=== PATIENT | female | born 1970 | race Caucasian/White ===

== ENCOUNTER 2017-09-23 08:56 | Inpatient (IN) | payer OTHER ==
[~2017-09-23] VITALS: Ht 149.9 cm; Wt 88.0 kg
[~2017-09-23 08:56] MED LIST: ? B/P MED; AMITRIPTYLINE H10 M3 PO; FLEXERIL PO; GABAPENTIN100 MG PO; LEVOTHROID; LIDODERM 5%1 PATC1 TRANSDERM; NORCO 5-325 TA1 EACH PO; PREDNISONE 20 M20 M1 PO; SYNTHROID125 MC1 PO
[2017-09-23 09:04] VITALS: BP 200/116
[2017-09-23 09:18] LABS: ABSOLUTE BASOPHILS 0.1 thou/uL (0.0-0.2); ABSOLUTE EOSINOPHILS 0.3 thou/uL (0.0-0.7); ABSOLUTE LYMPHOCYTES 3.1 thou/uL (0.8-5.3); ABSOLUTE MONOCYTES 0.5 thou/uL (0.0-1.2); ABSOLUTE NEUTROPHILS 2.7 thou/uL (1.6-8.1); BASOPHILS 1.2 %; EOSINOPHILS 4.2 %; HEMOGLOBIN 15.2 gm/dL (12.0-15.0); LYMPHOCYTES 46.5 %; MCH 30.5 pg (26.0-34.0); MCHC 34.5 g/dL (28.0-37.0); MCV 88.3 fL (80.0-100.0); MONOCYTES 7.5 %; MPV 7.7 fl. (7.2-11.1); NUCLEATED RBCS 0 /100WBC; PLATELET COUNT* 239 thou/uL (150-400); POLYS 40.6 %; RBC 4.99 mil/uL (4.20-5.00); RDW-CV 13.6 % (10.5-14.5); WBC 6.7 thou/uL (4.0-11.0)
[2017-09-23 09:26] LABS: ANION GAP 6 mmol/L (7-16); BUN 12 mg/dL (7-18); CALCIUM 8.8 mg/dL (8.5-10.1); CHLORIDE 104 mmol/L (98-107); CO2 31 mmol/L (21-32); CREATININE 0.9 mg/dL (0.6-1.3); GLUCOSE 86 mg/dL (70-99); POTASSIUM 3.5 mmol/L (3.5-5.1); SODIUM 141 mmol/L (136-145)
[2017-09-23 09:33] LABS: ALBUMIN 3.9 g/dL (3.4-5.0); ALKALINE PHOSPHATASE 108 U/L (46-116); LIPASE 247 U/L (73-393); SGOT 17 U/L (15-37); SGPT 24 U/L (30-65); TOTAL BILIRUBIN 0.5 mg/dL (<0.1-1.0); TOTAL PROTEIN 7.3 g/dL (6.4-8.2); TROPONIN-I LEVEL <0.06 ng/mL (<0.06)
[2017-09-23 10:53] VITALS: BP 141/99
[2017-09-23 11:15] VITALS: BP 209/89
[2017-09-23] MEDS ORDERED: HYDROCODONE-AP1 EAC6 PO (12:23)
--- NOTE | 2017-09-23 12:39 | NUR ---
RECEIVED PT FROM ER 1115. PT IS ALERT AND ORIENTED X4. AMBULATORY FROM CART TO BED. C/O LEFT ARM PAIN. RATES 7-8 OUT OF 10. PRN PAIN MEDICATION GIVEN WITH PARTIAL RELIEF. PRN NAUSEA MEDICATION GIVEN WITH PARTIAL RELIEF. ADMISSION ASSESSMENT AND HISTORY COMPLETED. PLAN FOR 2 DAY STRESS TEST. RESTING PART TODAY AND STRESS PART TOMORROW. PATIENT UPDATED ON PLAN OF CARE. PLAN FOR NPO AFTER MIDNIGHT. CALL LIGHT WITHIN REACH. WILL CONTINUE TO MONITOR.
--- NOTE | 2017-09-23 15:16 | EKG ---
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 : 1970 Requested By: Miguel Pringle Order Number: [id number] MD: Neftali Shaikh Measurements Intervals [place] Rate: 81 P: 64 RI: 143 QRS: 60 QRSD: 85 T: 51 QT: 387 QTc: 450 Interpretive Statements Sinus rhythm Baseline wander in lead(s) V5,V6 No previous ECG available for comparison Electronically Signed On 09-23-2017 15:16:15 GEOTHERMAL TECHNICIAN by Neftali Shaikh [email or web address] <ELECTRONICALLY SIGNED> By: Neftali Shaikh MD, [facility] 09/23/17 1516 0901 0901 Neftali Shaikh MD, [facility] /EPI
[2017-09-23 17:00] VITALS: BP 151/106
--- NOTE | 2017-09-23 17:38 | 2DMMODE ---
[place] [address] 2 D/M-MODE ECHOCARDIOGRAM Name: MOLLY SOARES Room: [address] IN [facility]#: [id number] Admission: 09/23/17 Attend Phys: Dilcia Dobbs Discharge: Date of : 72 Date of Service: 09/23/17 1738 Report #: [id number] THIS REPORT FOR: //name// APPROVED REPORT Study performed: 09/23/2017 14:29:49 EXAM: Comprehensive 2D, Doppler, and color-flow Echocardiogram Patient Location: In-Patient Room #: 230 Status: routine BSA: 1.82 HR: 68 bpm BP: 209/89 mmHg Rhythm: NSR Other Information Study Quality: Good Indications Chest Pain 2D Dimensions LVEF(%): 59.85 (>50%) IVSd: 12.31 (7-11mm) LVOT Diam: 18.55 (18-24mm) LVDd: 34.79 mm PWd: 11.02 (7-11mm) Ascending Ao: 32.54 (22-36mm) LVDs: 23.98 (25-40mm) Aortic Root: 29.41 mm Fatima's LVEF: 59.85 % Volumes Left Atrial Volume (Systole) LA ESV Index: 18.60 mL/m2 Aortic Valve AoV Peak Segundo.: 1.61 m/s AO Peak Gr.: 10.33 mmHg LVOT Max P.89 mmHg AO Mean Gr.: 4.92 mmHg LVOT Mean P.10 mmHg LVOT Max V: 1.31 m/s AO V2 VTI: 30.69 cm LVOT Mean V: 0.80 m/s JENY (VTI): 2.01 cm2 LVOT V1 VTI: 22.80 cm Mitral Valve E/A Ratio: 1.13 [place] [address] 2 D/M-MODE ECHOCARDIOGRAM Name: MOLLY SOARES Room: [address] IN [facility].#: [id number] Admission: 09/23/17 Attend Phys: Dilcia Dobbs Discharge: Date of : 72 Date of Service: 09/23/17 1738 Report #: [id number] MV Decel. Time: 236.89 ms MV E Max Segundo.: 1.07 m/s MV PHT: 68.70 ms MVA (PHT): 3.20 cm2 TDI E/Lateral E': 10.70 E/Medial E': 9.73 Medial E' Segundo.: 0.11 m/s Lateral E' Segundo.: 0.10 m/s Pulmonary Valve PV Peak Segundo.: 1.08 m/s PV Peak Gr.: 4.68 mmHg Tricuspid Valve TR Peak Gr.: 23.19 mmHg RVSP: 28.00 mmHg Left Ventricle The left ventricle is normal size. There is normal LV segmental wall motion. There is normal left ventricular wall thickness. Left ventricular systolic function is normal. LVEF is 60-65%. The left ventricular diastolic function is normal. Right Ventricle The right ventricle is normal size. The right ventricular systolic function is normal. Atria The left atrium size is normal. The right atrium size is normal. Aortic Valve The aortic valve is normal in structure. No aortic regurgitation is present. There is no aortic valvular stenosis. Mitral Valve The mitral valve is normal in structure. There is no mitral valve regurgitation noted. No evidence of mitral valve stenosis. Tricuspid Valve The tricuspid valve is normal in structure. Mild tricuspid regurgitation. The RVSP is ___28____ mmHg. Pulmonic Valve The pulmonary valve is normal in structure. There is no pulmonic [place] [address] 2 D/M-MODE ECHOCARDIOGRAM Name: MOLLY SOARES Room: [address] IN M.R.#: [id number] Admission: 09/23/17 Attend Phys: Dilcia Dobbs Discharge: Date of : 72 Date of Service: 09/23/17 1738 Report #: [id number] Great Vessels The aortic root is normal in size. IVC is normal in size and collapses with >50% inspiration Pericardium There is no pericardial effusion. <Conclusion> The left ventricle is normal size. There is normal left ventricular wall thickness. Left ventricular systolic function is normal. LVEF is 60-65%. The left ventricular diastolic function is normal. Mild tricuspid regurgitation. The RVSP is ___28____ mmHg. <ELECTRONICALLY SIGNED> By: Kp Quinonez MD, FACC 09/23/17 1738 1738 1738 Kp Quinonez MD, FACC /INF
[2017-09-23 19:40] VITALS: BP 111/63
[2017-09-24] VITALS: BP 107/68
[2017-09-24 04:20] VITALS: BP 91/66
--- NOTE | 2017-09-24 05:34 | NUR ---
ASSUMED CARE AT 1940, ASSESSMENT CHARTED. PATIENT ALERT/ORIENTED X4, SITTING UP IN BED WATCHING TV. UP AD SANDRA IN ROOM. DENIES NEEDS. STATES HAVING PAIN TO LEFT ARM, PAIN MEDS PER MAR WITH PARTIAL RELIEF NOTED. HS SNACK GIVEN. NPO AFTER MIDNIGHT. REFUSING SCD'S. CALL LIGHT WITHIN REACH, ENCOURAGED TO CALL FOR NEEDS.
--- NOTE | 2017-09-24 07:18 | NUR ---
PATIENT RESTING IN BED. REPORT GIVEN TO ONCOMING NURSE. WILL MONITOR.
--- NOTE | 2017-09-24 10:50 | NUR ---
RECIEVED REPORT FROM JAMES AND ASSUMED CARE OF PT @ 2742. PT A/O X4, BP SLIGHTLY LOW @ 108/62, TRACING SR ON MONITOR, LUNG SOUNDS CLEAR ON RA O2 SAT 99%. IV RIGHT AC SALINE LOCKED. PT IS CALM AND COOPERATIVE. PT DENIES PAIN AT TIME OF ASSESSMENT. PT IS UP AD SANDRA AND IS NPO FOR SECOND PORTION OF STRESS TEST FOR THIS MORNING. PT AMLODIPINE WAS HELD DUE TO BP BEING SOFT. PT MAY POSSIBLY DISCHARGE TODAY IF STRESS TEST IS NEGATIVE. WILL CONTINUE TO MONITOR.
[2017-09-24 13:15] VITALS: BP 134/68
--- NOTE | 2017-09-24 14:05 | NUR ---
PT GETTING STRESS TEST, POSSIBLE DC LATER
[2017-09-24] MEDS ORDERED: VOLTAREN GEL 1100 G2 TOP (14:38)
[2017-09-24] MEDS ORDERED: ALPRAZOLAM0.5 M2 PO (14:38)
[2017-09-24 15:15] VITALS: BP 134/68
[2017-09-24] MEDS ORDERED: NORVASC5 M1 PO (15:15)
--- NOTE | 2017-09-24 15:17 | CARDNUC ---
[place] [address] CARDIAC NUCLEAR IMAGING REPORT Name: MOLLY SOARES Room: [address] IN [facility].#: [id number] Admission: 09/23/17 Attend Phys: Dilcia Dobbs Discharge: Date of : 72 Date of Service: 09/24/17 1517 Report #: [id number] THIS REPORT FOR: //name// APPROVED REPORT Exam: Nuclear Stress Test Indication: Chest pain, left arm pain Patient Location: In-Patient Stress Tech: Sehryl Zelaya Stress Nurse: Opal Valderrama RN NM Tech:MOY Wadsworth Ht: 4 ft 11 in Wt: 194 lbs BSA: 1.82 m2 BMI: 39.17 Medical History Medical History: HTN Medications: amlodipine, labetalol, lisinopril, asa Allergies: No known drug allergies Cardiac Risk Factors: HTN, FHX of CAD Exercise History: Sedentary Meds Held (24 hrs): amlodipine, labetalol Stress Test Details Stress Test: Pharmacologic stress testing performed using 0.4 mg of regadenoson per 5 mL given IV over 10 seconds. Reason for pharmacologic stress test: physical limitation. HR Resting HR: 75 bpm Max Heart Rate (APMHR): 174 bpm Max HR Achieved: 103 bpm Target HR (85% APMHR): 147 bpm % of APMHR: 59 Recovery HR: 86 bpm BP Resting BP: 128/89 mmHg Max BP: 133/88 mmHg ECG Resting ECG: Sinus Rhythm, normal EKG Stress ECG: Sinus Rhythm, normal EKG ST Change: None Arrhythmia: None Recovery ECG: Sinus Rhythm, normal EKG Recovery ST Change: [place] [address] CARDIAC NUCLEAR IMAGING REPORT Name: MOLLY SOARES Room: [address]#: [id number] Admission: 09/23/17 Attend Phys: Dilcia Dobbs Discharge: Date of : 72 Date of Service: 09/24/17 1517 Report #: [id number] Recovery Arrhythmia: None Clinical Reason for Termination: Completed protocol Stress Symptoms: left arm pain-numbness Exercise duration: - min sec Exercise capacity: 1.0 METs The patient had some atypical symptoms with Lexiscan infusion but no significant chest discomfort. Nurse Comments Patient complained of Left upper arm numbness and discomfort after lexiscan injection, rated 5-6, resolving in recovery. Stress ECG Conclusion The baseline 12-lead electrocardiogram showed normal sinus rhythm with no significant ST or T wave abnormality. EKGs obtained during and post Lexiscan stress show sinus rhythm with no significant ST or T wave changes when compared to baseline. There were no stress-induced arrhythmias. NM EXAM: Myocardial Perfusion REST/STRESS Imaging Protocol: Rest Tc-99m/Stress Tc-99m 2 days Resting Data Rest SPECT myocardial perfusion imaging was performed in supine position 30 minutes following the intravenous injection of 35.2 mCi of Tc-99m Sestamibi. Time of rest injection: 1445 Date: 09/23/2017 Time of rest imagin The images were gated to evaluate regional wall motion and calculate left ventricular ejection fraction. Administration Route: IV Pharmacologic Stress Pharmacologic stress test was performed by injecting Regadenoson 0.4 mg IV push followed by the intravenous injection of 36.8 mCi of Tc-99m Sestamibi. Time of stress injection: 1200 Date: 09/24/2017 Time of stress imagin Administration Route: IV Gated Stress SPECT was performed 40 minutes after stress injection. The images were gated to evaluate regional wall motion and calculate left ventricular ejection fraction. Pr[place] [address] CARDIAC NUCLEAR IMAGING REPORT Name: MOLLY SOARES Room: [address]#: [id number] Admission: 09/23/17 Attend Phys: Dilcia Dobbs Discharge: Date of : 72 Date of Service: 09/24/17 1517 Report #: [id number] Study Quality Study: Good Artifact: No artifact Study Data At rest, the left ventricular ejection fraction was 71%.. Post stress, the left ventricular ejection was 70%.. TID = 1.05. Perfusion Normal left ventricular perfusion. Wall Motion Normal left ventricular wall motion. Nuclear Conclusion ECG Findings: negative for ischemia Clinical Findings: negative for ischemia Nuclear Findings: negative for ischemia Exercise Capacity: not assessed Left Ventricular Function: normal Risk Study: low Myocardial perfusion images show no defect to suggest infarct or ischemia. Left ventricular systolic function is normal on gated studies. This is a low risk study. <Conclusion> The baseline 12-lead electrocardiogram showed normal sinus rhythm with no significant ST or T wave abnormality. EKGs obtained during and post Lexiscan stress show sinus rhythm with no significant ST or T wave changes when compared to baseline. There were no stress-induced arrhythmias. <ELECTRONICALLY SIGNED> By: Kp Quinonez MD, FACC 09/24/17 1517 1517 1517 Kp Quinonez MD, FACC /INF
--- NOTE | 2017-09-24 16:24 | NUR ---
PT IV REMOVED @ 1540 AND HEART MONITOR. DISCHARGE PAPERWORK AND SCRIPTS GONE OVER WITH PT AND GIVEN. SCRIPT CALLED INTO [employer] TO BIPIN.PT WALKED OUT WITH ALL PERSONAL BELONGINGS @ 1630.
== END 2017-09-24 18:07 | disposition home or self-care (01) | DRG 206 ==
LOC: M.ERS 08:56 → M.2W 09:52 → M.TBA-ER 09:52 → M.2W 11:08
PROVIDERS: Emergency Medicine Emergency Medical Services; ADMIT Internal Medicine
DX: M94.0 Chondrocostal junction syndrome [Tietze] (principal); I16.1 Hypertensive emergency; E03.9 Hypothyroidism, unspecified; I16.0 Hypertensive urgency; F41.9 Anxiety disorder, unspecified; Z90.49 Acquired absence of other specified parts of digestive tract; Z82.49 Family history of ischemic heart disease and other diseases of the circulatory system

== ENCOUNTER 2020-10-11 21:58 | Emergency (ER) | payer OTHER ==
[~2020-10-11] VITALS: Ht 149.9 cm; Wt 87.1 kg
[~2020-10-11 21:58] MED LIST changes: +ALPRAZOLAM0.5 M2 PO; +HYDROCODONE-AP1 EAC6 PO; +NORVASC5 M1 PO; +VOLTAREN GEL 1100 G2 TOP
[2020-10-11 22:44] LABS: ABSOLUTE BASOPHILS 0.1 thou/uL (0.0-0.2); ABSOLUTE EOSINOPHILS 0.4 thou/uL (0.0-0.7); ABSOLUTE LYMPHOCYTES 2.4 thou/uL (0.8-5.3); ABSOLUTE MONOCYTES 0.6 thou/uL (0.0-1.2); ABSOLUTE NEUTROPHILS 6.6 thou/uL (1.6-8.1); BASOPHILS 0.8 %; EOSINOPHILS 3.9 %; HEMATOCRIT 41.3 % (37.0-47.0); HEMOGLOBIN 13.6 gm/dL (12.0-15.0); LYMPHOCYTES 23.9 %; MCH 27.7 pg (26.0-34.0); MCV 83.8 fL (80.0-100.0); MONOCYTES 6.3 %; MPV 7.3 fl. (7.2-11.1); NUCLEATED RBCS 0 /100WBC; PLATELET COUNT* 313 thou/uL (150-400); POLYS 65.1 %; RBC 4.93 mil/uL (4.20-5.00); RDW-CV 16.2 % (10.5-14.5); WBC 10.2 thou/uL (4.0-11.0)
[2020-10-11 22:54] LABS: CALCIUM 8.9 mg/dL (8.5-10.1); CREATININE 0.9 mg/dL (0.6-1.3); POTASSIUM 3.7 mmol/L (3.5-5.1)
[2020-10-11 23:03] LABS: ALBUMIN 4.1 g/dL (3.4-5.0); TOTAL BILIRUBIN 0.4 mg/dL (<0.1-1.0)
[2020-10-11 23:08] LABS: URINE BILIRUBIN NEGATIVE (Negative); URINE BLOOD TRACE (Negative); URINE CLARITY CLEAR; URINE COLOR YELLOW; URINE GLUCOSE-RANDOM NEGATIVE (Negative); URINE KETONES NEGATIVE (Negative); URINE LEUKOCYTES-REFLEX NEGATIVE (Negative); URINE NITRITE-REFLEX NEGATIVE (Negative); URINE PROTEIN 1+ (Negative); URINE SPECIFIC GRAVITY >= 1.030 (1.005-1.030)
[2020-10-11 23:16] LABS: AMP/METHAMP Negative (Negative); BARBITURATES Negative (Negative); BENZODIAZEPINES Negative (Negative); COCAINE Negative (Negative); METHADONE Negative (Negative); OPIATES Negative (Negative); PCP Negative (Negative); THC POSITIVE (Negative)
[2020-10-12] MEDS ORDERED: ZOFRAN ODT4 MG PO (00:56)
[2020-10-12] MEDS ORDERED: ULTRAM 50MG TAB50 MG PO (00:56)
[2020-10-12 01:16] VITALS: BP 131/73
--- NOTE | 2020-10-12 10:55 | EKG ---
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 Sales: [facility] : 1970 Requested By: Tavia Flores Order Number: [id number] MD: Carroll Negro Measurements Intervals [place] Rate: 81 P: 55 ND: 144 QRS: 43 QRSD: 90 T: 45 QT: 389 QTc: 452 Interpretive Statements Sinus rhythm Compared to ECG 09/23/2017 09:01:55 No significant changes Electronically Signed On 10-12-2020 10:55:25 CDT by Carroll Negro [email or web address] <ELECTRONICALLY SIGNED> By: Carroll Negro MD, [facility] 10/12/20 1055 2242 2242 Carroll Negro MD, [facility] /EPI
== END 2020-10-12 01:16 | disposition home or self-care (01) ==
LOC: M.ERS 21:58
PROVIDERS: Personal Emergency Response Attendant
DX: K80.20 Calculus of gallbladder without cholecystitis without obstruction (principal); K85.90 Acute pancreatitis without necrosis or infection, unspecified; I10 Essential (primary) hypertension; E03.9 Hypothyroidism, unspecified; Z98.890 Other specified postprocedural states; Z90.89 Acquired absence of other organs; Z79.899 Other long term (current) drug therapy

== ENCOUNTER → 2020-10-16 | Outpatient (CLI) | payer OTHER ==
[~2020-10-16] MED LIST changes: +CLONIDINE HCL0.1 MG PO; +ESTRADIOL 1 MG T1 M1 PO; +HYDROCODON-ACE1 EAC7 PO; +LEVOXYL137 MCG PO; +LISINOPRIL1 GM; +LISINOPRIL2.5 M1 PO; +NORCO5 PO; +NORVASC10 MG PO; +PERCOCET PO; +ULTRAM 50MG TAB50 MG PO; +XANAX 0.25 MG0.25 MG PO; +ZOFRAN ODT4 MG PO
== END ==
LOC: M.LAB 16:22
PROVIDERS: ATTEND Surgery
DX: Z01.812 Encounter for preprocedural laboratory examination (principal); Z20.822 Contact with and (suspected) exposure to COVID-19

== ENCOUNTER 2020-10-19 10:45 | Observation (INO) | payer OTHER ==
[~2020-10-19] VITALS: Ht 149.9 cm; Wt 88.9 kg
--- NOTE | ~2020-10-19 | OP ---
[facility] [address] [place] [address] OPERATIVE REPORT Name: ALEXANDER LITTLEEVANMOLLY Calix Room: [facility]#: [id number] Admission: 10/19/20 Attend Phys: Jermaine Hoffman Discharge: Date of : 72 Report #: [id number] THIS REPORT FOR: cc: Olman Chacon MD, Meng MD Patterson,Jermaine Walton MD ~ DATE OF SERVICE: 10/19/2020 PREOPERATIVE DIAGNOSIS: Symptomatic cholelithiasis. POSTOPERATIVE DIAGNOSIS: Symptomatic cholelithiasis. OPERATION: Laparoscopic cholecystectomy with intraoperative cholangiogram. SURGEON: Jermaine Hoffman MD. ANESTHESIA: General. ESTIMATED BLOOD LOSS: Minimal. SPECIMEN: Gallbladder. DESCRIPTION OF PROCEDURE: After informed consent was obtained, the patient was brought to the operating room and placed supine. SCDs were placed and working, preoperative antibiotics were administered, general anesthesia was induced. The abdomen was prepped and draped in the usual sterile fashion. A 10 mm incision was made above the umbilicus. Fascia was incised and a trocar was placed. Pneumoperitoneum was established. Three right upper quadrant 5 mm ports were placed. Gallbladder was grasped and retracted cephalad. Infundibulum was grasped and retracted laterally. I dissected out the cystic duct and the cystic artery. The area was somewhat hard to identify and therefore, I elected to perform a cholangiogram. A cholangiogram was then performed. I inserted a cholangiogram catheter and the cystic duct. A ductotomy was made and the catheter was inserted. Cholangiogram was then performed. This demonstrated filling of the cystic duct, common bile duct, common hepatic duct, bifurcation of the hepatics, smooth easy flow into the duodenum. There were no filling defects. This was normal. The cystic duct was then clipped and ligated leaving 2 clips on the remaining duct. Gallbladder was then taken off the liver bed with electrocautery. It was placed into an Endopouch and removed. There was a small tongue of liver and this was excised as this was almost amputated already. The area was then instilled with FloSeal for hemostasis. The ports were removed under direct vision. The skin was closed with 4-0 Monocryl. Incisions were [place] [address] OPERATIVE REPORT Name: MOLLY SOARES Room: [facility]#: [id number] Admission: 10/19/20 Attend Phys: Jermaine Hoffman Discharge: Date of : 72 Report #: [id number] COMPLICATIONS: None. DISPOSITION: The patient was taken to recovery in satisfactory condition. By: 1456 1510Jermaine Hoffman MD /nt
[~2020-10-19 10:45] MED LIST changes: -HYDROCODON-ACE1 EAC7 PO; -NORCO5 PO; -PERCOCET PO
[2020-10-19] MEDS ORDERED: NORCO5 PO (11:06)
--- NOTE | 2020-10-19 16:05 | EKG ---
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 Assistant: DEBRA : 1970 Requested By: Jermaine Hoffman Order Number: [id number] Reading MD: Neftali Shaikh Measurements Intervals [place] Rate: 57 P: 53 TX: 150 QRS: 41 QRSD: 91 T: 39 QT: 415 QTc: 404 Interpretive Statements Sinus bradycardia Abnormal R-wave progression, early transition Compared to ECG 10/11/2020 22:42:49 rate has slowed Electronically Signed On 10-19-2020 16:05:35 CDT by Neftali Shaikh [email or web address] <ELECTRONICALLY SIGNED> By: Neftali Shaikh MD, [facility] 10/19/20 1605 1140 1140 Neftali Shaikh MD, [facility] /EPI
[2020-10-19 17:51] LABS: CALCIUM 8.3 mg/dL (8.5-10.1); POTASSIUM 3.9 mmol/L (3.5-5.1)
[2020-10-19 17:55] LABS: ALBUMIN 4.1 g/dL (3.4-5.0); TOTAL BILIRUBIN 0.5 mg/dL (<0.1-1.0); TOTAL PROTEIN 7.9 g/dL (6.4-8.2)
[2020-10-19 18:19] VITALS: BP 142/82
[2020-10-19 20:00] VITALS: BP 187/102
--- NOTE | 2020-10-19 22:16 | NUR ---
PATIENT UNABLE TO URINATE. STATES THAT SHE IS ONLY URINATING DROPS. BLADDER SCAN DONE, 420MLS IN BLADDER. DR. PLUNKETT CONTACT, NEW ORDER FOR URNIE STRAIGHT CATH. STRAIGHT CATH DONE PER STERILE PROTOCOL. PATIENT TOLERATED WITHOUT COMPLICATION. STATED THAT HER PAIN IS DOWN TO A 7 AND FEELS THE CATH HELPED WITH HER PAIN. PATIENT IS RESTING IN BED. WILL CONTINUE TO MONITOR.
[2020-10-20] VITALS: BP 115/57
[2020-10-20 04:32] VITALS: BP 98/43
--- NOTE | 2020-10-20 06:49 | NUR ---
PATIENT RESTING IN BED. GIVEN HYDROMORPHONE, MORPHINE AND ZOFRAN X2 FOR PAIN. STRAIGHT CATH X1. PATEINT STATED THAT SHE IS NOT PASSING GAS AND CANNOT HAVE A BOWEL MOVEMENT. IV'S TO RIGHT AC AND LEFT FOREARM, PATENT, DRESSINGS C/D/I. K-PAD TO TOP OF BACK AND NECK. ALL QUESTIONS AND CONCERNS ADDRESSED. WILL CONTINUE TO MONITOR.
[2020-10-20 08:00] VITALS: BP 152/97
[2020-10-20 16:43] VITALS: BP 156/81
--- NOTE | 2020-10-20 17:20 | NUR ---
PT RESTING ON HER BED, SHE IS UP TO THE BATHROOM WITH A STEADY GAIT. PT HAS HAD A BOUT OF THROWING UP 2 TO 3 TIMES TODAY, PT NEVER SHOWED OR CALLED OUT TO TELL THIS RN SHE THREW UP. DR. PLUNKETT NOTIFIED AND SAID IT WAS OKAY FOR THE PT TO STAY ANOTHER NIGHT AND OKAY FOR A SUPPOSITORY TO HELP WITH CONSTIPATION. PT HAS 2 SALINE LOCKS IN RIGHT AND LEFT FOREARMS. VSS AFEBRILE. WILL CONTINUE TO MONITOR PLAN OF CARE.
[2020-10-20 20:00] VITALS: BP 129/90
[2020-10-21 04:16] VITALS: BP 152/79
--- NOTE | 2020-10-21 06:28 | NUR ---
PATIENT RESTING IN BED. C/O CONSTIPATION, BISACODYL GIVEN X1, WITH NO RESULTS. C/O ABDOMINAL PAIN, MORPHINE GIVEN X2. C/O OF NAUSEA, ZOFRAN GIVEN X1. IV SALINE LOCKED TO RIGHT AC/LEFT FOREARM, PATENT, DRESSING C/D/I. ALL QUESTIONS AND CONCERNS ADDRESSED. WILL CONTINUE TO MONITOR.
[2020-10-21 07:05] VITALS: BP 127/74
[2020-10-21 09:45] VITALS: BP 127/74
[2020-10-21 09:50] LABS: ABSOLUTE BASOPHILS 0.1 thou/uL (0.0-0.2); ABSOLUTE EOSINOPHILS 0.3 thou/uL (0.0-0.7); ABSOLUTE LYMPHOCYTES 1.6 thou/uL (0.8-5.3); ABSOLUTE NEUTROPHILS 9.4 thou/uL (1.6-8.1); EOSINOPHILS 2.5 %; HEMATOCRIT 39.8 % (37.0-47.0); HEMOGLOBIN 13.1 gm/dL (12.0-15.0); MONOCYTES 8.3 %; MPV 7.3 fl. (7.2-11.1); NUCLEATED RBCS 0 /100WBC; PLATELET COUNT* 292 thou/uL (150-400); POLYS 75.2 %; RBC 4.68 mil/uL (4.20-5.00); RDW-CV 16.3 % (10.5-14.5); WBC 12.5 thou/uL (4.0-11.0)
[2020-10-21 10:06] LABS: ALBUMIN 3.6 g/dL (3.4-5.0); CALCIUM 8.8 mg/dL (8.5-10.1); CREATININE 0.9 mg/dL (0.6-1.3); POTASSIUM 3.5 mmol/L (3.5-5.1); TOTAL BILIRUBIN 1.3 mg/dL (<0.1-1.0); TOTAL PROTEIN 7.2 g/dL (6.4-8.2)
[2020-10-21 11:46] LABS: URINE BILIRUBIN 2+ (Negative); URINE BLOOD 2+ (Negative); URINE CLARITY CLEAR; URINE COLOR DARK YELLOW; URINE GLUCOSE-RANDOM NEGATIVE (Negative); URINE KETONES 1+ (Negative); URINE LEUKOCYTES-REFLEX NEGATIVE (Negative); URINE NITRITE-REFLEX NEGATIVE (Negative); URINE PROTEIN 1+ (Negative); URINE SPECIFIC GRAVITY >= 1.030 (1.005-1.030)
[2020-10-21 11:47] LABS: ICTOTEST (BILI CONFIRMATORY) Positive (Negative)
[2020-10-21 11:56] LABS: MUCUS 4-6 Moderate strn/LPF (None Seen); SQUAMOUS >10 Many /LPF (0-3)
[2020-10-21 11:59] LABS: URINE RBC 3-10 Few /HPF (0-2)
[2020-10-21 12:00] LABS: CASTS None Seen /LPF (None Seen); CRYSTALS None Seen /LPF (None Seen)
[2020-10-21 12:01] LABS: YEAST-REFLEX Present (None Seen)
[2020-10-21 12:03] LABS: URINE WBC-REFLEX 6-15 Few /HPF (0-5)
--- NOTE | 2020-10-21 12:30 | NUR ---
PT GIVEN DISCHARGE INFORMATION, CARE NOTES, AND PRESCRIPTIONS. IV REMOVED. PT BELONGINGS GATHERED. PT LEFT VIA AMBULATORY WITH NURSING STAFF TO HOME.
--- NOTE | 2020-10-24 11:07 | PATH ---
[address] [address] PATHOLOGY RPT PROCEDURE Name: MOLLY LOBO Room: [address] Pancho Wagner#: [id number] Admission: 10/19/20 Date of : [birth year] Discharge: 10/21/20 Report #: [id number] Path Case #: [id number] [facility] Accession Number: [id number] . 01 Material submitted: . PART A: gallbladder - GALLBLADDER AND CONTENTS PART B: liver - LIVER . 01 Clinical history: . LAPAROSCOPIC CHOLECYSTECTOMY CALCULUS OF GALLBLADDER . 02 Diagnosis: A. Gallbladder, excision: - Lithiasis. - Mild chronic cholecystitis; negative for malignancy. - Cholesterolosis. . B. Liver, subcapsular wedge biopsy: - Steatohepatitis, moderately active, with early zone 3 perisinusoidal fibrosis (stage 1/4). - Focal zone 3 sinusoidal dilatation and congestion. (KAREN:ashlie; 10/23/2020) MBR 10/24/2020 1102 Local . 02 Electronically signed: . Abiodun Segura MD, Pathologist NPI- [id number] . 01 Gross description: . A. Fixative: formalin Labeled: gallbladder Specimen received: partially collapsed Dimensions: 6 x 3 x 2.2 cm Serosa: smooth thakkar green Lymph node: not identified Mucosa: velvety-with a yellow reticular pattern Average wall thickness: 0.3 cm Calculi: 1 stone, 0.7 cm green Abnormalities: None . Urgent Care body, fundus, and the cystic duct margin in cassette A1. . B. The specimen is received in formalin, labeled "molly lobo liver" and consist of a 2 g partial hepatectomy specimen measuring 3 x 2 x 0.7 cm without obvious lesions entirely submitted in B1-B3.([facility]; 10/19/2020) . LUCERO/LUCERO 10/23/[address] [place] [address] PATHOLOGY RPT PROCEDURE Name: MOLLY LOBO Room: [address]RMary#: [id number] Admission: 10/19/20 Date of : [birth year] Discharge: 10/21/20 Report #: [id number] Path Case #: [id number] . 02 Microscopic: . B. A subcapsular wedge biopsy of the liver is available for review. The portal tracts are somewhat variable. Many display a mild, predominantly lymphocytic inflammatory infiltrate. An occasional plasma cell and rare eosinophil is also noted. Interlobular bile ducts are seen within the portal tracts examined. They demonstrate mild to moderate reactive epithelial changes. There is no evidence of portal edema, granulomatous inflammation or prominent ductular reaction. . The hepatic parenchyma shows widespread steatosis (approximately 40%). Both medium and large size fat vesicles are identified. There is widespread ballooning degeneration of hepatocytes, with occasional Diana-Denk bodies noted. 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 There are focal zone 3 areas with dilatation of the sinusoids, and mild accompanying sinusoidal congestion. This is not present throughout. Lobular and necroinflammatory activity is mild. Sinusoidal inflammatory cells consistent of scattered lymphocytes, eosinophils and rare plasma cells, in addition to the clusters of neutrophils. . The trichrome stain shows focal zone 3 perisinusoidal fibrosis. There is no evidence of advanced bridging fibrosis or cirrhosis. The reticulin stain shows an overall intact hepatic reticulin framework, except in the areas of most pronounced steatosis. The majority of hepatic plates are of appropriate thickness. Focally, there is irregular thickening of plates, compatible with localized regeneration. The PAS stain highlights intracytoplasmic hepatocellular glycogen. The PAS-D stain identifies scattered ceroid-laden Kupffer cells. PAS-D positive intracytoplasmic hepatocellular globules are not identified. The iron stain is negative. . Special stains (B1, B2, B3): PAS with and without diastase, iron, trichrome, and reticulin. . (MLK:ashlie; 10/23/2020) . 02 Pathologist provided ICD-10: K80.10, K82.4, K75.81, K74.00 . 02 CPT . 430129, 083917, 978761, 045493, 366885, 157737, 252236, 669365, 814400, 287831, 381492, 452943, 234786, 606608 Specimen Comment: A courtesy copy of this report has been sent to [phone], [phone] Specimen Comment: [id number] Specimen Comment: Report sent to / Performed at: [address], [place] [id number] [place] [address] PATHOLOGY RPT PROCEDURE Name: MOLLY LOBO Room: [address] Pancho M.RMary#: [id number] Admission: 10/19/20 Date of : [birth year] Discharge: 10/21/20 Report #: [id number] Path Case #: [id number] MD Jl Da Silva MD Phone: [phone] Performed at: [address] [facility] [id number], [place], [place] [id number] MD Fam Dodge MD Phone: [phone]
== END 2020-10-21 12:31 | disposition home or self-care (01) ==
LOC: M.SUR 10:45 → M.TBA 18:14 → M.ORTHSURG 18:23
PROVIDERS: ADMIT Surgery; ATTEND Surgery
DX: K80.20 Calculus of gallbladder without cholecystitis without obstruction (principal); E03.9 Hypothyroidism, unspecified; Z79.899 Other long term (current) drug therapy

== ENCOUNTER 2020-10-23 11:46 | Emergency (ER) | payer OTHER ==
[~2020-10-23] VITALS: Ht 149.9 cm; Wt 86.6 kg
[~2020-10-23 11:46] MED LIST changes: +NORCO5 PO
[2020-10-23 12:19] LABS: CALCIUM 9.5 mg/dL (8.5-10.1); CREATININE 0.9 mg/dL (0.6-1.3); POTASSIUM 4.1 mmol/L (3.5-5.1)
[2020-10-23 12:24] LABS: ALBUMIN 3.4 g/dL (3.4-5.0); TOTAL BILIRUBIN 1.2 mg/dL (<0.1-1.0); TOTAL PROTEIN 8.3 g/dL (6.4-8.2)
[2020-10-23 12:32] LABS: HEMOGLOBIN 13.9 gm/dL (12.0-15.0); NUCLEATED RBCS 0 /100WBC
[2020-10-23 12:34] LABS: ABSOLUTE BASOPHILS 0.1 thou/uL (0.0-0.2); ABSOLUTE EOSINOPHILS 0.9 thou/uL (0.0-0.7); ABSOLUTE LYMPHOCYTES 2.2 thou/uL (0.8-5.3); ABSOLUTE MONOCYTES 0.9 thou/uL (0.0-1.2); ABSOLUTE NEUTROPHILS 9.7 thou/uL (1.6-8.1); BASOPHILS 0.9 %; EOSINOPHILS 6.7 %; LYMPHOCYTES 15.7 %; MCH 28.5 pg (26.0-34.0); MCHC 33.2 g/dL (28.0-37.0); MCV 85.9 fL (80.0-100.0); MONOCYTES 6.3 %; MPV 8.1 fl. (7.2-11.1); PLATELET COUNT* 301 thou/uL (150-400); POLYS 70.4 %; RBC 4.89 mil/uL (4.20-5.00); RDW-CV 16.5 % (10.5-14.5); WBC 13.8 thou/uL (4.0-11.0)
[2020-10-23 13:15] LABS: ANISOCYTOSIS 1+; CLUMPED PLTS RARE; PLATELET ESTIMATE ADEQUATE; POIKILOCYTOSIS 1+
[2020-10-23 13:50] LABS: URINE BILIRUBIN NEGATIVE (Negative); URINE BLOOD TRACE (Negative); URINE CLARITY CLEAR; URINE COLOR YELLOW; URINE GLUCOSE-RANDOM NEGATIVE (Negative); URINE KETONES 2+ (Negative); URINE LEUKOCYTES-REFLEX NEGATIVE (Negative); URINE NITRITE-REFLEX NEGATIVE (Negative); URINE PROTEIN NEGATIVE (Negative); URINE UROBILINOGEN 0.2 E.U./dl (0.2-1.0)
[2020-10-23] MEDS ORDERED: PERCOCET PO (14:15)
[2020-10-23] MEDS ORDERED: ZOFRAN ODT4 MG PO (14:15)
[2020-10-23] MEDS ORDERED: HYDROCODON-ACE1 EAC7 PO (14:17)
[2020-10-23 14:40] VITALS: BP 144/85
--- NOTE | 2020-10-23 15:44 | EKG ---
[place] [address] ELECTROCARDIOGRAM REPORT Name: MOLLY SOARES Room: 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
== END 2020-10-23 14:41 | disposition home or self-care (01) ==
LOC: M.ERS 11:46
PROVIDERS: Nurse Practitioner Family
DX: G89.18 Other acute postprocedural pain (principal); R10.11 Right upper quadrant pain; R11.2 Nausea with vomiting, unspecified

== ENCOUNTER 2020-10-25 17:17 | Inpatient (IN) | payer OTHER ==
[~2020-10-25] VITALS: Ht 162.6 cm; Wt 87.1 kg
--- NOTE | ~2020-10-25 | PROC ---
[address] [address] PROCEDURE REPORT Name: MOLLY SOARES Room: [address] IN M.R.#: [id number] Admission: 10/25/20 Attend Phys: Arline Russell MD Discharge: 10/29/20 Date of : [birth year] Report #: [id number] THIS REPORT FOR: cc: Olman Chacon MD, Meng MD SM,Medical Records Staff ~ For GI report, please see the Provation report in Perceptive 7 content. By: 1409Medical Records Staff [facility] /LOS
[~2020-10-25 17:17] MED LIST changes: +HYDROCODON-ACE1 EAC7 PO; +PERCOCET PO
[2020-10-25 17:45] VITALS: BP 141/90
[2020-10-25 18:49] LABS: ABSOLUTE BASOPHILS 0.1 thou/uL (0.0-0.2); ABSOLUTE EOSINOPHILS 0.7 thou/uL (0.0-0.7); ABSOLUTE LYMPHOCYTES 1.8 thou/uL (0.8-5.3); ABSOLUTE MONOCYTES 0.6 thou/uL (0.0-1.2); ABSOLUTE NEUTROPHILS 4.5 thou/uL (1.6-8.1); BASOPHILS 1.2 %; HEMATOCRIT 39.3 % (37.0-47.0); HEMOGLOBIN 12.9 gm/dL (12.0-15.0); LYMPHOCYTES 23.5 %; MCH 28.1 pg (26.0-34.0); MCHC 32.8 g/dL (28.0-37.0); MCV 85.9 fL (80.0-100.0); MONOCYTES 7.4 %; MPV 7.1 fl. (7.2-11.1); NUCLEATED RBCS 0 /100WBC; PLATELET COUNT* 319 thou/uL (150-400); POLYS 58.9 %; RBC 4.58 mil/uL (4.20-5.00); RDW-CV 16.3 % (10.5-14.5); WBC 7.6 thou/uL (4.0-11.0)
[2020-10-25 18:58] LABS: CREATININE 0.8 mg/dL (0.6-1.3); POTASSIUM 3.3 mmol/L (3.5-5.1)
[2020-10-25 19:02] LABS: ALBUMIN 3.4 g/dL (3.4-5.0); TOTAL BILIRUBIN 0.9 mg/dL (<0.1-1.0); TOTAL PROTEIN 7.4 g/dL (6.4-8.2)
[2020-10-25 20:20] VITALS: BP 120/74
[2020-10-25 20:21] LABS: URINE BLOOD 1+ (Negative); URINE CLARITY CLOUDY; URINE COLOR YELLOW; URINE GLUCOSE-RANDOM NEGATIVE (Negative); URINE KETONES 2+ (Negative); URINE LEUKOCYTES-REFLEX NEGATIVE (Negative); URINE NITRITE-REFLEX NEGATIVE (Negative); URINE PROTEIN NEGATIVE (Negative); URINE SPECIFIC GRAVITY 1.015 (1.005-1.030); URINE UROBILINOGEN 0.2 E.U./dl (0.2-1.0)
[2020-10-25 20:32] LABS: ICTOTEST (BILI CONFIRMATORY) Negative (Negative); URINE BILIRUBIN 1+ (Negative)
[2020-10-25 20:34] LABS: AMORPHOUS PHOSPHATES Many /LPF (None Seen); MUCUS None Seen strn/LPF (None Seen); SQUAMOUS 4-10 Moderate /LPF (0-3)
[2020-10-25 20:35] LABS: BACTERIA-REFLEX 1-9 Few /HPF (None Seen); CASTS None Seen /LPF (None Seen); URINE RBC 0-2 Rare /HPF (0-2); URINE WBC-REFLEX 0-5 Rare /HPF (0-5)
[2020-10-26 05:16] LABS: HEMATOCRIT 37.4 % (37.0-47.0); HEMOGLOBIN 12.3 gm/dL (12.0-15.0); MCH 28.3 pg (26.0-34.0); MCHC 32.8 g/dL (28.0-37.0); MCV 86.2 fL (80.0-100.0); MPV 7.3 fl. (7.2-11.1); RBC 4.34 mil/uL (4.20-5.00); RDW-CV 16.3 % (10.5-14.5); WBC 8.9 thou/uL (4.0-11.0)
[2020-10-26 05:38] LABS: PROTIME 10.7 Seconds (9.20-11.50)
[2020-10-26 05:39] LABS: ALBUMIN 3.1 g/dL (3.4-5.0); CALCIUM 8.8 mg/dL (8.5-10.1); CREATININE 0.9 mg/dL (0.6-1.3); POTASSIUM 3.8 mmol/L (3.5-5.1); TOTAL PROTEIN 6.8 g/dL (6.4-8.2)
[2020-10-26 08:10] VITALS: BP 123/76
[2020-10-26 17:45] VITALS: BP 149/87
[2020-10-26 20:20] VITALS: BP 149/82
[2020-10-27 00:23] VITALS: BP 145/90
[2020-10-27 02:06] LABS: GLYCOHEMOGLOBIN (HGB A1C) 4.9 % (4.8-5.6)
[2020-10-27 06:20] LABS: HEMATOCRIT 34.7 % (37.0-47.0); HEMOGLOBIN 11.4 gm/dL (12.0-15.0); MCHC 32.7 g/dL (28.0-37.0); MCV 85.7 fL (80.0-100.0); MPV 7.1 fl. (7.2-11.1); RBC 4.05 mil/uL (4.20-5.00); RDW-CV 15.7 % (10.5-14.5); WBC 7.6 thou/uL (4.0-11.0)
[2020-10-27 06:45] LABS: CALCIUM 8.4 mg/dL (8.5-10.1); CREATININE 0.7 mg/dL (0.6-1.3); POTASSIUM 4.1 mmol/L (3.5-5.1); TOTAL BILIRUBIN 0.8 mg/dL (<0.1-1.0); TOTAL PROTEIN 6.6 g/dL (6.4-8.2)
[2020-10-27 07:53] VITALS: BP 148/83
[2020-10-27 16:30] VITALS: BP 116/71
[2020-10-27 19:45] VITALS: BP 129/78
[2020-10-28 04:38] LABS: ALBUMIN 2.8 g/dL (3.4-5.0); CALCIUM 8.3 mg/dL (8.5-10.1); CREATININE 0.9 mg/dL (0.6-1.3); TOTAL BILIRUBIN 0.5 mg/dL (<0.1-1.0); TOTAL PROTEIN 6.2 g/dL (6.4-8.2)
[2020-10-28 04:42] LABS: POTASSIUM 3.1 mmol/L (3.5-5.1)
[2020-10-28 04:49] LABS: ABSOLUTE BASOPHILS 0.1 thou/uL (0.0-0.2); ABSOLUTE EOSINOPHILS 0.6 thou/uL (0.0-0.7); ABSOLUTE LYMPHOCYTES 2.1 thou/uL (0.8-5.3); ABSOLUTE MONOCYTES 0.5 thou/uL (0.0-1.2); ABSOLUTE NEUTROPHILS 5.4 thou/uL (1.6-8.1); BASOPHILS 0.7 %; EOSINOPHILS 6.6 %; HEMATOCRIT 31.6 % (37.0-47.0); HEMOGLOBIN 10.5 gm/dL (12.0-15.0); LYMPHOCYTES 23.9 %; MCH 28.4 pg (26.0-34.0); MCHC 33.4 g/dL (28.0-37.0); MCV 85.1 fL (80.0-100.0); MONOCYTES 6.3 %; MPV 7.3 fl. (7.2-11.1); NUCLEATED RBCS 0 /100WBC; PLATELET COUNT* 294 thou/uL (150-400); POLYS 62.5 %; RBC 3.71 mil/uL (4.20-5.00); RDW-CV 16.1 % (10.5-14.5); WBC 8.6 thou/uL (4.0-11.0)
[2020-10-28 07:40] VITALS: BP 139/82
[2020-10-28 16:25] VITALS: BP 127/57
[2020-10-28 20:15] VITALS: BP 137/85
[2020-10-29 04:07] LABS: ALBUMIN 3.2 g/dL (3.4-5.0); CALCIUM 8.6 mg/dL (8.5-10.1); CREATININE 0.8 mg/dL (0.6-1.3); POTASSIUM 3.2 mmol/L (3.5-5.1); TOTAL BILIRUBIN 0.7 mg/dL (<0.1-1.0); TOTAL PROTEIN 7.2 g/dL (6.4-8.2)
[2020-10-29 04:15] LABS: ABSOLUTE BASOPHILS 0.1 thou/uL (0.0-0.2); ABSOLUTE EOSINOPHILS 0.7 thou/uL (0.0-0.7); ABSOLUTE MONOCYTES 0.7 thou/uL (0.0-1.2); ABSOLUTE NEUTROPHILS 6.1 thou/uL (1.6-8.1); BASOPHILS 0.7 %; EOSINOPHILS 7.8 %; HEMATOCRIT 36.4 % (37.0-47.0); HEMOGLOBIN 12.1 gm/dL (12.0-15.0); LYMPHOCYTES 20.6 %; MCH 28.1 pg (26.0-34.0); MCHC 33.1 g/dL (28.0-37.0); MCV 84.9 fL (80.0-100.0); MONOCYTES 7.2 %; MPV 6.9 fl. (7.2-11.1); NUCLEATED RBCS 0 /100WBC; PLATELET COUNT* 333 thou/uL (150-400); POLYS 63.7 %; RBC 4.29 mil/uL (4.20-5.00); RDW-CV 16.1 % (10.5-14.5); WBC 9.6 thou/uL (4.0-11.0)
[2020-10-29 07:50] VITALS: BP 128/80
[2020-10-29 08:40] VITALS: BP 128/80
[2020-10-29] MEDS ORDERED: ZOFRAN ODT4 MG PO (09:14)
[2020-10-29 11:40] VITALS: BP 128/80
[2020-10-29 13:17] VITALS: BP 128/80
== END 2020-10-29 13:05 | disposition home or self-care (01) | DRG 395 ==
LOC: M.ORTHSURG 17:17
PROVIDERS: Internal Medicine; Internal Medicine Gastroenterology; Nurse Practitioner Family; ADMIT Internal Medicine; ATTEND Internal Medicine
PROC: 0F798DZ Dilation of Common Bile Duct with Intraluminal Device, Via Natural or Artificial Opening Endoscopic (ICD-10-PCS; principal; 2020-10-26)
PROC: BF101ZZ Fluoroscopy of Bile Ducts using Low Osmolar Contrast (ICD-10-PCS; principal; 2020-10-26)
DX: K91.89 Other postprocedural complications and disorders of digestive system (principal); K83.9 Disease of biliary tract, unspecified; E86.9 Volume depletion, unspecified; I10 Essential (primary) hypertension; E03.9 Hypothyroidism, unspecified; E88.09 Other disorders of plasma-protein metabolism, not elsewhere classified; K83.8 Other specified diseases of biliary tract; Z91.09 Other allergy status, other than to drugs and biological substances; Z98.891 History of uterine scar from previous surgery; Z90.49 Acquired absence of other specified parts of digestive tract; Z72.89 Other problems related to lifestyle

== ENCOUNTER → 2020-11-12 | Outpatient (CLI) | payer OTHER | LOC: M.NUC 07:11 | PROVIDERS: ATTEND Nurse Practitioner Adult Health | DX: R11.2 Nausea with vomiting, unspecified (principal); R10.9 Unspecified abdominal pain ==

== ENCOUNTER → 2020-11-28 | Outpatient (CLI) | payer OTHER ==
[2020-11-28 11:46] LABS: CALCIUM 8.7 mg/dL (8.5-10.1); CREATININE 0.8 mg/dL (0.6-1.3); POTASSIUM 3.9 mmol/L (3.5-5.1); TOTAL BILIRUBIN 0.5 mg/dL (<0.1-1.0)
== END ==
LOC: M.CT 11-20 09:00 → M.LAB 10:25 → M.CT 10:25
PROVIDERS: ATTEND Surgery
DX: R10.9 Unspecified abdominal pain (principal); Z90.49 Acquired absence of other specified parts of digestive tract

== ENCOUNTER → 2020-12-14 | Day surgery (SDC) | payer OTHER ==
--- NOTE | ~2020-12-14 | PROC ---
[address] [address] PROCEDURE REPORT Name: MOLLY SOARES Room: [facility]#: [id number] Admission: 12/14/20 Attend Phys: Osmany Middleton DO Discharge: Date of : 72 Report #: [id number] THIS REPORT FOR: cc: Olman Chacon MD, Meng MD [facility],Medical Records Staff ~ For GI report, please see the Provation report in Perceptive 7 content. By: 1452Medical Records Staff JESSICA /LOS
[2020-12-14 13:27] LABS: ABSOLUTE BASOPHILS 0.1 thou/uL (0.0-0.2); ABSOLUTE EOSINOPHILS 0.1 thou/uL (0.0-0.7); ABSOLUTE LYMPHOCYTES 1.2 thou/uL (0.8-5.3); ABSOLUTE MONOCYTES 0.2 thou/uL (0.0-1.2); ABSOLUTE NEUTROPHILS 5.8 thou/uL (1.6-8.1); BASOPHILS 0.9 %; EOSINOPHILS 1.8 %; HEMATOCRIT 40.2 % (37.0-47.0); HEMOGLOBIN 13.2 gm/dL (12.0-15.0); LYMPHOCYTES 16.8 %; MCH 28.3 pg (26.0-34.0); MCHC 32.8 g/dL (28.0-37.0); MCV 86.2 fL (80.0-100.0); MONOCYTES 2.4 %; MPV 7.3 fl. (7.2-11.1); NUCLEATED RBCS 0 /100WBC; PLATELET COUNT* 255 thou/uL (150-400); POLYS 78.1 %; RBC 4.67 mil/uL (4.20-5.00); WBC 7.4 thou/uL (4.0-11.0)
[2020-12-14 13:41] LABS: ALBUMIN 3.5 g/dL (3.4-5.0); CALCIUM 8.7 mg/dL (8.5-10.1); CREATININE 0.8 mg/dL (0.6-1.3); POTASSIUM 4.3 mmol/L (3.5-5.1); TOTAL BILIRUBIN 0.4 mg/dL (<0.1-1.0); TOTAL PROTEIN 7.2 g/dL (6.4-8.2)
== END | disposition home or self-care (01) ==
LOC: M.SUR 05:16
PROVIDERS: ATTEND Internal Medicine Gastroenterology
DX: Z46.59 Encounter for fitting and adjustment of other gastrointestinal appliance and device (principal); K83.8 Other specified diseases of biliary tract; R10.13 Epigastric pain; K44.9 Diaphragmatic hernia without obstruction or gangrene; K21.9 Gastro-esophageal reflux disease without esophagitis; I10 Essential (primary) hypertension; E07.9 Disorder of thyroid, unspecified; G43.909 Migraine, unspecified, not intractable, without status migrainosus; Z98.84 Bariatric surgery status; Z98.890 Other specified postprocedural states; Z79.899 Other long term (current) drug therapy; Z20.822 Contact with and (suspected) exposure to COVID-19; Z90.710 Acquired absence of both cervix and uterus

== ENCOUNTER → 2021-06-03 | Outpatient (CLI) | payer OTHER ==
[2021-06-03 07:14] LABS: ABSOLUTE BASOPHILS 0.1 thou/uL (0.0-0.2); ABSOLUTE EOSINOPHILS 0.2 thou/uL (0.0-0.7); ABSOLUTE LYMPHOCYTES 2.3 thou/uL (0.8-5.3); ABSOLUTE MONOCYTES 0.4 thou/uL (0.0-1.2); EOSINOPHILS 4.1 %; LYMPHOCYTES 38.6 %; MCH 29.5 pg (26.0-34.0); MCHC 33.2 g/dL (28.0-37.0); MCV 88.9 fL (80.0-100.0); MONOCYTES 6.9 %; MPV 6.9 fl. (7.2-11.1); NUCLEATED RBCS 0 /100WBC; PLATELET COUNT* 278 thou/uL (150-400); POLYS 49.4 %; RBC 4.73 mil/uL (4.20-5.00); RDW-CV 14.4 % (10.5-14.5); WBC 6.1 thou/uL (4.0-11.0)
[2021-06-03 07:26] LABS: ALBUMIN 3.6 g/dL (3.4-5.0); CALCIUM 8.8 mg/dL (8.5-10.1); CREATININE 0.9 mg/dL (0.6-1.3); POTASSIUM 4.4 mmol/L (3.5-5.1); TOTAL BILIRUBIN 0.5 mg/dL (<0.1-1.0); TOTAL PROTEIN 7.1 g/dL (6.4-8.2)
== END ==
LOC: M.CT 05-29 08:00 → M.LAB 06:32 → M.CT 07:30
PROVIDERS: ATTEND Internal Medicine Gastroenterology
DX: K76.0 Fatty (change of) liver, not elsewhere classified (principal); K92.1 Melena; R94.5 Abnormal results of liver function studies; R79.89 Other specified abnormal findings of blood chemistry; R18.8 Other ascites; Z90.710 Acquired absence of both cervix and uterus

== ENCOUNTER → 2021-06-17 | Outpatient (CLI) | payer OTHER | LOC: M.MRI 07:18 | PROVIDERS: ATTEND Internal Medicine Gastroenterology | DX: R93.3 Abnormal findings on diagnostic imaging of other parts of digestive tract (principal); Z90.49 Acquired absence of other specified parts of digestive tract ==